=== PATIENT | female | born 1965 | race Caucasian/White ===

== ENCOUNTER 2019-09-01 11:14 | Emergency (ER) | payer OTHER ==
[~2019-09-01] VITALS: Ht 162.6 cm; Wt 87.5 kg
[~2019-09-01 11:14] MED LIST: CYCL10 PO; DULO60 PO; ESOM20 PO; Flagyl500 MG PO; Frova2.5 MG; HUMATE P INJ; HYDR1TAB94 PO; LISI20 PO; METO100ER PO; MILN100T PO; Norco 5-325 Ta1 EACH PO; Zanaflex4 M1 PO
[2019-09-01] MEDS ORDERED: Crutch1 EACH MISC (13:53)
[2019-09-05] MEDS ORDERED: METPRE4DP PO (15:29)
[2019-09-05] MEDS ORDERED: Percocet 7.5-31 EACH PO (15:29)
== END 2019-09-01 13:58 | disposition home or self-care (01) ==
LOC: ER 11:14
DX: S92.354A Nondisplaced fracture of fifth metatarsal bone, right foot, initial encounter for closed fracture (principal); S63.501A Unspecified sprain of right wrist, initial encounter; X50.9XXA Other and unspecified overexertion or strenuous movements or postures, initial encounter; Z88.6 Allergy status to analgesic agent; Z91.040 Latex allergy status; Z88.8 Allergy status to other drugs, medicaments and biological substances; Z79.899 Other long term (current) drug therapy; K21.9 Gastro-esophageal reflux disease without esophagitis; I10 Essential (primary) hypertension
CPT/HCPCS: 29125; 29515; 73110; 73610; 73630; 96372-59; 99283-25; J1170